=== PATIENT | female | born 1975 | race Caucasian/White ===

== ENCOUNTER 2016-05-30 13:47 | Emergency (ER) | payer MEDICAID ==
--- NOTE | 2016-05-30 14:02 | EDPHY ---
H & P Time Seen by Provider: 05/30/16 14:01 HPI/ROS: CHIEF COMPLAINT: Left foot pain. HISTORY OF PRESENT ILLNESS: The patient is a 41-year-old female who presents with left foot pain for the past 3 days. Patient indicates pain is at distal 4th and 5th metatarsals, near MTP. The pain radiates to her heel. It is worsened with walking. She denies trauma or injury. No fever, chills, chest pain , shortness of breath, palpitations, vomiting, diarrhea, urinary complaints, headache, lightheadedness. REVIEW OF SYSTEMS: Aside from elements discussed in the HPI, a comprehensive 10-point review of systems was reviewed and is negative. PAST MEDICAL HISTORY: Denies. SOCIAL HISTORY: Daily alcohol use. VITAL SIGNS: Reviewed by me GENERAL: Well-developed, well-nourished, resting comfortably in no respiratory distress. HEENT: Atraumatic. LUNGS: Clear to auscultation bilaterally. CARDIAC: Heart clear. ABDOMEN: Soft, nontender, nondistended, bowel sounds normal. BACK: No CVA tenderness. EXTREMITIES: Left foot: Erythema over 2nd, 3rd, and 4th toes. Pain to palpation of distal metatarsals. Tenderness anterior to lateral malleoli. No trauma. No edema. Range of motion is normal throughout. NEURO: Alert and oriented, grossly nonfocal. SKIN: Warm and dry, no rash. PSYCHIATRIC: Normal mentation, no agitation. Portions of this note were transcribed by a biomedical electronics technician. I personally performed a history, physical exam, medical decision making, and confirmed accuracy of information the transcribed note. Source: Patient Exam Limitations: No limitations - Medical/Surgical History Hx Asthma: No Hx Chronic Respiratory Disease: No Hx Diabetes: No Hx Cardiac Disease: No Hx Renal Disease: No Hx Cirrhosis: No Hx Alcoholism: No Hx HIV/AIDS: No Hx Splenectomy or Spleen Trauma: No Other PMH: PSH: wisdom teeth;. PMH: denies - Social History Smoking Status: Former smoker Constitutional: Initial Vital Signs Temperature (C) 36.6 C 05/30/16 14:03 Heart Rate 95 05/30/16 14:03 Respiratory Rate 16 05/30/16 14:03 Blood Pressure 132/90 H 05/30/16 14:03 O2 Sat (%) 95 05/30/16 14:03 O2 Delivery Mode Room Air Allergies/Adverse Reactions: No Known Allergies Allergy (Unverified 07/26/15 12:58) Home Medications: Medication Instructions Recorded Cephalexin [Keflex (RX)] 500 mg PO QID 5 Days 05/30/16 Medical Decision Making - Diagnostics Imaging: Left foot x-ray was obtained. I viewed the images myself on the PACS system. My interpretation of the images is: no acute process. The radiologist interpretation is pending at this time. I discussed the x-ray findings with the patient. ED Course/Re-evaluation: Left foot x-ray ordered. 1440: Patient's x-ray negative for acute process as interpreted by me. She will be placed in an OLEGARIO bandage and given a hard-soled shoe. Will provide keflex for some antibiotic coverage as well given small area of erythema on dorsum of foot. Differential Diagnosis: Diff dx considered included arthritis, gout, trauma, sprain, fracture, contusion , overuse syndrome. Departure - Departure Disposition: Home, Routine, Self-Care Clinical Impression: Sprain of left foot Qualifiers: Qualifier Code: (S93.602A) Unspecified sprain of left foot, initial encounter Condition: Good Instructions: Foot Sprain (ED) Additional Instructions: Mainstay of therapy is rest, ice, immobilization, elevation, and nonsteroidal anti-inflammatories for pain and to decrease swelling. Apply ice for 20-30 minutes every 2-3 hours for the next 48 hours. I recommend Ibuprofen (Motrin,Advil) or Naproxen Sodium (Aleve) for pain and anti-inflammatory effects. You may take either one, but do not take both. Your dose is: Ibuprofen 600mg every 6-8 hours with food. OR Naproxen Sodium (Aleve) 220mg every 12 hours. Wear cast shoe as needed for pain. Take the antibiotic as prescribed. Follow up with your doctor in 3-4 days if symptoms are not improving. Return to the emergency department if you experience serious worsening of condition. Referrals: [facility] [Outside] - As per Instructions Prescriptions: Cephalexin [Keflex (RX)] 500 mg PO QID 5 Days Report Scribed for: Chelsi Hernandez Report Scribed by: Parviz Toledo Date of Report: 05/30/16 Time of Report: 14:02
[2016-05-30 14:04] VITALS: RESP 16; TEMP 97.9; O2SAT 95
[2016-05-30 15:12] VITALS: BP 139/91; PULSE 88
--- NOTE | 2016-05-30 16:52 | DX ---
Left Foot, Three Views History: Left foot pain. Findings: Mild bunion deformity. Bipartite appearance to the medial sesamoid. No evidence for acute f racture or dislocation. Small enthesophyte is seen in the plantar insertion of the calcaneus. Impression: No evidence for fracture. Mild chronic findings, as above.
== END 2016-05-30 15:12 | disposition home or self-care (01) ==
DX: S93.602A Unspecified sprain of left foot, initial encounter (principal); Z87.891 Personal history of nicotine dependence; X58.XXXA Exposure to other specified factors, initial encounter
CPT/HCPCS: L3260

== ENCOUNTER → 2018-03-28 | Outpatient (CLI) | payer MEDICAID ==
[~2018-03-28] MED LIST: IOPAMIDOL (ISOVUE-300) 100 ML BTL ONE
== END ==
LOC: FIMAGING 09:23
PROVIDERS: ATTEND Internal Medicine
DX: K85.20 Alcohol induced acute pancreatitis without necrosis or infection (principal); K38.8 Other specified diseases of appendix; K76.89 Other specified diseases of liver; K31.9 Disease of stomach and duodenum, unspecified
CPT/HCPCS: Q9967